=== PATIENT | male | born 1995 | race African-American/Black ===

== ENCOUNTER 2016-08-19 02:47 | Emergency (ER) | payer OTHER ==
[~2016-08-19] VITALS: Ht 182.9 cm; Wt 81.6 kg
[2016-08-19 03:19] VITALS: BP 140/83
--- NOTE | 2016-08-19 03:39 | PHYS DOC ---
Past Medical History Past Medical History: Asthma Past Surgical History: Other Additional Past Surgical Histo: wrist Alcohol Use: None Drug Use: None Adult General Chief Complaint Chief Complaint: SEXUALLY TRANSMITTED DISEASE HPI HPI Patient is a 21 year old male who presents for STD testing. Patient reports he had unprotected intercourse that female tonight about 2300. He says he woke up about 0200 with a funny feeling in his abdomen; he is unable to verbalize well what exactly felt, stating "it could be I'm just hungry". Patient unable to state exactly why he feels so uneasy and is worried about STDs. He denies any dysuria, penile discharge, sores, testicular pain. He has not taken anything for symptoms. No other acute complaints. Review of Systems Review of Systems Constitutional: Denies fever or chills Respiratory: Denies cough or shortness of breath Cardiovascular: Denies chest pain GI: "Funny" feeling in abdomen. Denies abdominal pain, nausea, vomiting, or diarrhea Musculoskeletal: Denies back pain or joint pain Neurologic: Denies headache, focal weakness or sensory changes Allergies Allergies Allergies Coded Allergies Type Severity Reaction Last Updated Verified No Known Drug Allergies 08/03/15 No Physical Exam Physical Exam Constitutional: Well developed, well nourished, no acute distress, non-toxic appearance HENT: Normocephalic, atraumatic Eyes: EOMI, conjunctiva normal, no discharge Neck: No stridor Pulmonary: No respiratory distress Abdomen: Soft, non-tender, non-distended : Deferred Skin: Warm, dry Neurologic: Alert and oriented X 3 Current Patient Data Vital Signs Vital Signs Date Time Temp Pulse Resp B/P Pulse Ox O2 Delivery O2 Flow Rate FiO2 08/19/16 03:19 98.5 84 16 100 Room Air 98.5 EKG EKG [] Radiology/Procedures Radiology/Procedures [] Course & Med Decision Making Course & Med Decision Making Pertinent Labs and Imaging studies reviewed. (See chart for details) Patient is 21-year-old male who presents for STD check. No symptoms other than "funny" feeling in his abdomen. No symptoms to indicate active sexually transmitted infection, and with such recent intercourse I'd be surprised if symptoms develop that quickly anyways. I offered to perform urine test for gonorrhea and chlamydia. However patient declines this and says he is rather follow-up with the [facility]. I am for patient that if he had any further concerns he can always return to the emergency department for testing. Patient discharged home with instructions for follow-up and return precautions. Bingon Disclaimer Bingon Disclaimer This electronic medical record was generated, in whole or in part, using a voice recognition dictation system. Departure Departure Impression: Primary Impression: Possible exposure to STD Disposition: HOME, SELF-CARE Condition: STABLE Referrals: NO PCP (PCP) Patient Instructions: Sexually Transmitted Disease Additional Instructions: Thank you for allowing us to provide care today in the Emergency Department. Follow-up with the [facility] Department. Their information is as follows: General/STD Clinic Hours Health Department 8:30 am to 5:[address] [place] [address] Friday - Friday [place], [place] [address] [id number] on Return promptly to the Emergency Department if you develop any new or concerning symptoms. TED MEEK MD Aug 19, 2016 03:39
== END 2016-08-19 03:45 | disposition home or self-care (01) ==
LOC: ER 02:50
DX: Z20.2 Contact with and (suspected) exposure to infections with a predominantly sexual mode of transmission (principal); J45.909 Unspecified asthma, uncomplicated
CPT/HCPCS: 99281

== ENCOUNTER 2016-11-11 23:55 | Emergency (ER) | payer SELFPAY ==
[~2016-11-11] VITALS: Ht 182.9 cm; Wt 81.6 kg
[2016-11-12 01:13] VITALS: BP 121/58
--- NOTE | 2016-11-12 02:28 | PHYS DOC ---
Past Medical History Past Medical History: Asthma Past Surgical History: Other Additional Past Surgical Histo: wrist Alcohol Use: None Drug Use: None Adult General Chief Complaint Chief Complaint: Congestion HPI HPI Patient is a 21 year old male who presents with dyspnea. The patient states he sometimes feels short of breath at night when sleeping. He state this has been going on for about 3 months since he tried smoking marijuana, does not use tobacco. He feels like he has trouble catching his breath when lying flat. Denies fevers/chills, cough, chest pain, dyspnea with exertion, vomiting, abdominal pain, calf pain/swelling. Previously healthy, history of childhood asthma. Review of Systems Review of Systems Constitutional: Denies fever or chills HENT: Denies nasal congestion or sore throat Respiratory: Denies cough, reports shortness of breath Cardiovascular: Denies chest pain or edema GI: Denies abdominal pain, nausea, vomiting Musculoskeletal: Denies back pain or joint pain Integument: Denies rash or skin lesions Neurologic: Denies headache Allergies Allergies Allergies Coded Allergies Type Severity Reaction Last Updated Verified No Known Drug Allergies 08/03/15 No Physical Exam Physical Exam Constitutional: Well developed, well nourished, no acute distress, non-toxic appearance. HENT: Normocephalic, atraumatic, bilateral external ears normal, oropharynx moist, no tonsillar enlargement/exudate, nose normal. Eyes: conjunctiva normal, no discharge. Neck: supple, no stridor. Cardiovascular: RRR, no murmurs, no edema. Lungs & Thorax: LCTAB, no wheezing, no respiratory distress. Abdomen: soft, nontender, nondistended. Skin: Warm, dry, no erythema, no rash. Back: No tenderness. Extremities: No tenderness, no edema., no calf tenderness/swelling Neurologic: Alert and oriented X 3 Current Patient Data Vital Signs Vital Signs Date Time Temp Pulse Resp B/P (MAP) Pulse Ox O2 Delivery O2 Flow Rate FiO2 11/12/16 01:13 97.9 56 20 100 Room Air 97.9 EKG EKG [] Radiology/Procedures Radiology/Procedures Chest x-ray: Interpreted by me: No cardiomegaly, no infiltrate, no pneumothorax , no acute process. [] Course & Med Decision Making Course & Med Decision Making Pertinent Labs and Imaging studies reviewed. (See chart for details) The patient presents with intermittent shortness of breath, asymptomatic at time of my exam, oxygen saturation 100% on room air with clear breath sounds. CXR no acute abnormality. Recommend follow up as needed with primary care if symptoms continue, maybe would benefit from echocardiogram or sleep study on an outpatient basis. Come back for severe shortness of breath or chest pain, or any otherwise worsening condition. Discharged home in stable condition. [] Dragon Disclaimer Dragon Disclaimer This electronic medical record was generated, in whole or in part, using a voice recognition dictation system. Departure Departure Impression: Primary Impression: Shortness of breath Disposition: HOME, SELF-CARE Condition: STABLE Referrals: NO PCP (PCP) EDEN VÁZQUEZ MD Patient Instructions: Shortness of Breath, [id number] Additional Instructions: You were seen in the emergency department today for shortness of breath. Chest x -ray did not show any serious cause of symptoms. Oxygen levels were normal here. Please follow-up with Dr. Vázquez in the primary care clinic in one to 2 weeks. Return to the emergency department for severe shortness of breath or chest pain, or any otherwise worsening condition. LESLIE KILLIAN MD Nov 12, 2016 02:28
--- NOTE | 2016-11-12 07:13 | RAD ---
Chest, 2 views, 11/12/2016: History: Shortness of breath The heart size is normal. The lungs are clear. There is no evidence of pleural fluid or pneumothorax. IMPRESSION: No significant abnormality is detected.
== END 2016-11-12 03:10 | disposition home or self-care (01) ==
LOC: ER 23:55
DX: R06.02 Shortness of breath (principal); R06.00 Dyspnea, unspecified; J45.909 Unspecified asthma, uncomplicated; F12.10 Cannabis abuse, uncomplicated
CPT/HCPCS: 71020; 99284